=== PATIENT | female | born 1945 | race Caucasian/White ===

== ENCOUNTER 2021-07-24 17:33 | Emergency (ER) | payer MEDICARE, OTHER ==
[2021-07-24] MEDS ORDERED: NORCO 5-325 TA1 EACH PO (22:39)
[2021-07-24] MEDS ORDERED: VOLTAREN ARTHRI20 GM TD (22:39)
== END 2021-07-24 23:10 | disposition home or self-care (01) ==
LOC: FER 17:33
DX: S52.531A Colles' fracture of right radius, initial encounter for closed fracture (principal); S01.111A Laceration without foreign body of right eyelid and periocular area, initial encounter; I10 Essential (primary) hypertension; Z88.0 Allergy status to penicillin; Z23 Encounter for immunization; W18.30XA Fall on same level, unspecified, initial encounter; Y92.009 Unspecified place in unspecified non-institutional (private) residence as the place of occurrence of the external cause
CPT/HCPCS: 70450; 73100; 73560; 90471; 90715

== ENCOUNTER 2022-01-22 14:54 | Emergency (ER) | payer MEDICARE ==
[~2022-01-22 14:54] MED LIST: NORCO 5-325 TA1 EACH PO; VOLTAREN ARTHRI20 GM TD
[2022-01-22 16:01] LABS: BASOPHIL 0.4 % (0-2); HCT 34.2 % (37.0-47.0); HGB 11.8 g/dl (12.5-16.0); LYMPHOCYTE 15.4 % (15-48); MCH 31.1 pg (25.0-31.0); MCHC 34.5 g/dL (32.0-36.0); MONOCYTE 5.6 % (0-12); MPV 8.3 fL (6.0-9.5); NEUTROPHIL 77.2 % (41-80); NRBC 0; PLT 289 K/uL (150-400); RDW 12.1 % (11.5-14.0); WBC 10.3 K/uL (4.0-10.5)
[2022-01-22 16:18] LABS: INR 0.95 (0.9-1.2); PROTHROMBIN TIME 12.1 SECONDS (11.8-13.4)
[2022-01-22 16:24] LABS: BUN/CREAT RATIO (CALC) 13.6 RATIO; CREATININE 1.4 mg/dL (0.51-0.95); POTASSIUM 3.7 mmol/L (3.5-5.1)
[2022-01-22 17:19] LABS: CORONAVIRUS 2019 SARS-COV-2 NEGATIVE (NEGATIVE); INFLUENZA A NAA NEGATIVE (NEGATIVE)
== END 2022-01-22 18:50 | disposition other institution (70) ==
LOC: FER 14:54
PROVIDERS: Nurse Practitioner Family
DX: S72.302A Unspecified fracture of shaft of left femur, initial encounter for closed fracture (principal); E87.1 Hypo-osmolality and hyponatremia; I10 Essential (primary) hypertension; Z20.822 Contact with and (suspected) exposure to COVID-19; Z88.0 Allergy status to penicillin; W01.0XXA Fall on same level from slipping, tripping and stumbling without subsequent striking against object, initial encounter; Y92.009 Unspecified place in unspecified non-institutional (private) residence as the place of occurrence of the external cause
CPT/HCPCS: 36415; 71045; 73502; 73552; 80048; 85025; 85610; J1170; J2270; J2405; J7030; U0002

== ENCOUNTER 2022-02-23 00:09 | Day surgery (SDCO) | payer MEDICARE ==
[~2022-02-23] VITALS: Ht 160 cm; Wt 68.1 kg
[2022-02-23 00:29] LABS: EOSINOPHIL 4.9 % (0-7); HCT 31.9 % (37.0-47.0); HGB 10.6 g/dl (12.5-16.0); LYMPHOCYTE 30.2 % (15-48); MCH 31.2 pg (25.0-31.0); MCHC 33.2 g/dL (32.0-36.0); MCV 93.8 fL (78.0-100.0); MONOCYTE 7.5 % (0-12); MPV 8.8 fL (6.0-9.5); NEUTROPHIL 56.1 % (41-80); NRBC 0; PLT 358 K/uL (150-400); RDW 12.4 % (11.5-14.0); WBC 6.8 K/uL (4.0-10.5)
[2022-02-23 00:46] LABS: ALBUMIN 3.7 g/dL (3.4-5.0); BILIRUBIN - TOTAL 0.2 mg/dL (0.2-1.0); BUN/CREAT RATIO (CALC) 13.7 RATIO; CREATININE 1.24 mg/dL (0.51-0.95); GLOBULIN (CALCULATION) 3.9 g/dL; POTASSIUM 3.1 mmol/L (3.5-5.1); TOTAL PROTEIN 7.6 g/dL (6.4-8.2)
[2022-02-23 01:14] LABS: BILIRUBIN NEGATIVE (NEGATIVE); BLOOD NEGATIVE Ery/uL (NEGATIVE); CLARITY CLEAR (CLEAR); COLOR YELLOW (YELLOW); GLUCOSE (U) NORMAL (NORMAL); LEUKOCYTES TRACE Leu/uL (NEGATIVE); NITRITE NEGATIVE (NEGATIVE); PROTEIN NEGATIVE (NEGATIVE); UROBILINOGEN 0.2 mg/dL (0.2-1.0)
[2022-02-23 01:24] LABS: BACTERIA TRACE
[2022-02-23 02:53] LABS: CORONAVIRUS 2019 SARS-COV-2 NEGATIVE (NEGATIVE); INFLUENZA A NAA NEGATIVE (NEGATIVE)
[2022-02-23 04:06] LABS: OPIATES POSITIVE (NEGATIVE)
[2022-02-23 04:07] LABS: AMPHETAMINES NEGATIVE (NEGATIVE); BARBITURATES NEGATIVE (NEGATIVE); ECSTASY (MDMA) NEGATIVE (NEGATIVE); MARIJUANA (THC) NEGATIVE (NEGATIVE); METHADONE NEGATIVE (NEGATIVE); OXYCODONE NEGATIVE (NEGATIVE)
[2022-02-23] MEDS ORDERED: LORAZEPAM 0.5M0.5 MG PO (05:35)
[2022-02-23] MEDS ORDERED: LOSARTAN-HCTZ1 EAC1 PO (05:36)
[2022-02-23] MEDS ORDERED: SERTRALINE HCL100 MG PO (05:36)
[2022-02-23] MEDS ORDERED: OXYCODONE IR 5MG5 MG PO (05:37)
[2022-02-23] MEDS ORDERED: SIMVASTATIN20 MG PO (05:38)
[2022-02-23 07:19] LABS: BASOPHIL 0.7 % (0-2); EOSINOPHIL 3.2 % (0-7); HCT 29.3 % (37.0-47.0); HGB 9.7 g/dl (12.5-16.0); LYMPHOCYTE 27.5 % (15-48); MCH 31.2 pg (25.0-31.0); MCHC 33.1 g/dL (32.0-36.0); MCV 94.2 fL (78.0-100.0); MPV 8.8 fL (6.0-9.5); NEUTROPHIL 58.3 % (41-80); NRBC 0; PLT 311 K/uL (150-400); RBC 3.11 M/uL (4.20-5.40); RDW 12.4 % (11.5-14.0); RETICULOCYTE COUNT 2.3 % (1.0-2.0)
[2022-02-23 08:21] LABS: BUN/CREAT RATIO (CALC) 12.6 RATIO; CREATININE 1.11 mg/dL (0.51-0.95); FT4 (FREE T4) 0.8 ng/dL (0.76-1.46); MAGNESIUM 2.9 mg/dL (1.8-2.4); POTASSIUM 4.3 mmol/L (3.5-5.1)
[2022-02-23 10:12] LABS: IRON % SATURATION 13.7 %SAT (20-50)
[2022-02-24 06:43] LABS: HCT 28.8 % (37.0-47.0); HGB 9.7 g/dl (12.5-16.0); MCH 31.3 pg (25.0-31.0); MCHC 33.7 g/dL (32.0-36.0); MCV 92.9 fL (78.0-100.0); MPV 8.7 fL (6.0-9.5); RBC 3.1 M/uL (4.20-5.40); RDW 12.2 % (11.5-14.0); WBC 5.1 K/uL (4.0-10.5)
[2022-02-24 07:01] LABS: BUN/CREAT RATIO (CALC) 11.5 RATIO; CREATININE 1.22 mg/dL (0.51-0.95); POTASSIUM 3.7 mmol/L (3.5-5.1)
[2022-02-24] MEDS ORDERED: LOSARTAN POTASS25 MG PO (08:22)
[2022-02-24] MEDS ORDERED: MACROBID100 MG PO (08:23)
== END 2022-02-24 11:00 | disposition home or self-care (01) ==
LOC: FER 00:09 → FMS 04:20
PROVIDERS: Family Medicine; Internal Medicine; Nurse Practitioner Acute Care; ADMIT Internal Medicine
DX: G93.41 Metabolic encephalopathy (principal); N30.00 Acute cystitis without hematuria; R55 Syncope and collapse; I12.9 Hypertensive chronic kidney disease with stage 1 through stage 4 chronic kidney disease, or unspecified chronic kidney disease; N18.9 Chronic kidney disease, unspecified; D63.1 Anemia in chronic kidney disease; E87.1 Hypo-osmolality and hyponatremia; F03.90 Unspecified dementia, unspecified severity, without behavioral disturbance, psychotic disturbance, mood disturbance, and anxiety; M16.0 Bilateral primary osteoarthritis of hip; E78.5 Hyperlipidemia, unspecified; G89.29 Other chronic pain; M25.561 Pain in right knee; M25.562 Pain in left knee; E87.6 Hypokalemia; E87.2 Acidosis; S80.01XA Contusion of right knee, initial encounter; S80.02XA Contusion of left knee, initial encounter; R01.1 Cardiac murmur, unspecified; I07.1 Rheumatic tricuspid insufficiency; Z88.0 Allergy status to penicillin; Z79.899 Other long term (current) drug therapy; Z20.822 Contact with and (suspected) exposure to COVID-19; W19.XXXA Unspecified fall, initial encounter; Y92.002 Bathroom of unspecified non-institutional (private) residence as the place of occurrence of the external cause
CPT/HCPCS: 36415; 70450; 71250; 73560; 80048; 80053; 80305; 81001; 82140; 82728; 83540; 83550; 83605; 83690; 83735; 83880; 84145; 84439; 84443; 84484; 85025; 87040; 87088; 93005; 94010; 97116; 97162; 97166; G0378; J0696; J1650; J3475; J7030; J7050; U0002